=== PATIENT | female | born 1995 | race Caucasian/White ===

== ENCOUNTER 2023-11-06 15:04 | Outpatient (CLI) | payer SELFPAY | END 2023-11-06 15:05 | disposition home or self-care (01) | LOC: AMB 11-19 04:24 | PROVIDERS: Visit Provider Emergency Medicine Emergency Medical Services | DX: R10.9 Unspecified abdominal pain (principal); T78.1XXA Other adverse food reactions, not elsewhere classified, initial encounter | CPT/HCPCS: A0425; A0427 ==

== ENCOUNTER 2023-11-06 15:26 | Emergency (ER) | payer SELFPAY ==
[2023-11-06 15:30] VITALS: BP 169/122; PULSE 84; RESP 18; TEMP 36.6; O2SAT 100; BMI 44.6
--- NOTE | 2023-11-06 15:55 | ED.ABDPAIN ---
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 She does have a recurrent history of upper epigastric abdominal pain and her note to the nurse stated that this is been going on and off over the past 7 years since being bit by a tick. She tells me that this pain began after awakening from a nap just prior to arrival. She reports that she has not had any imaging done and states that no medicines have helped with this. I asked her if she ever had a GI cocktail and she said that she has and then it brought immediate relief. Related Data Home Medications ?Medication ?Instructions ?Recorded ?Confirmed Lamictal 11/06/23 Lexapro 11/06/23 Previous Rx's ?Medication ?Instructions ?Recorded pantoprazole 20 mg tablet,delayed 40 mg (2 x 20 mg) PO DAILY #30 tabs 11/06/23 release (Protonix) Review of Systems Status of ROS Reports: 10 or more systems reviewed and unremarkable except as noted in History and below Narrative Constitutional: No fevers, no weight gain or loss. Eyes: No discharge. No vision changes. HENT: No congestion, no sore throat, no ear pain. Cardiovascular: No chest pain, no palpitations. Respiratory: No shortness of breath, no wheezes, no cough. Gastrointestinal: No vomiting, no diarrhea. Upper epigastric abdominal pain. Genitourinary: No dysuria, no hematuria. Musculoskeletal: Normal range of motion. Skin: No rashes, no pruritis. Neurological: No dizziness, weakness, sensory change, speech change. Endo/Heme/Allergies: No bruising or bleeding. No polydipsia. Pysch: no suicidality, no anxiety, no insomnia. All other systems reviewed and are negative. PFSH PFSH Social History Do you use any of these nicotine containing products: Vaping Products How often do you have a drink containing alcohol: monthly or less AUDIT-C Alcohol total score: 1 Non-prescribed substance use: denies use Exam Narrative: Exam Narrative: Constitutional: Well-developed, well-nourished, no acute distress. HEENT: Normocephalic, atraumatic. Neck: Normal range of motion. Nontender. Supple. Heart: Regular. No murmurs. Normal rate. Intact distal pulses. Lungs: Clear to auscultation. No chest discomfort. No wheezes, rhonchi, or rales. Abdomen: Normal bowel sounds. Diffuse tenderness in the upper epigastric region. No rebound tenderness. Genitalia: Deferred. Back: No midline tenderness. Normal range of motion. Extremities: Normal range of motion. No injury. Skin: Intact. No rash. Warm. No erythema or pallor. Neurologic: No altered sensation. No weakness. Alert and oriented. Psychiatric: No suicidality. No anxiety or depression. No insomnia. Nursing notes and vitals signs are reviewed. Const: Vital Signs, click to edit/add: Vital Signs - 24 hr 11/06/23 15:30 Temperature 97.9 F Pulse Rate [Right Pulse Oximeter] 84 Respiratory Rate 18 Blood Pressure [Ri ght Upper Arm] 169/122 H Pulse Oximetry 100 Oxygen Delivery Me thod Room Air Course Vital Signs Vital signs: Initial Vital Signs Temperature 97.9 F 11/06/23 15:30 Temperature Source Temporal Artery Scan 11/06/23 15:30 Pulse Rate 84 11/06/23 15:30 Respiratory Rate 18 11/06/23 15:30 Blood Pressure 169/122 H 11/06/23 15:30 Blood Pressure Mean 137 H 11/06/23 15:30 Blood Pressure Position Sitting 11/06/23 15:30 Pulse Oximetry 100 11/06/23 15:30 Oxygen Delivery Method Room Air 11/06/23 15:30 Vital Signs Temperature 97.9 F 11/06/23 15:30 Pulse Rate 84 11/06/23 15:30 Respiratory Rate 18 11/06/23 15:30 Blood Pressure 169/122 H 11/06/23 15:30 Pulse Oximetry 100 11/06/23 15:30 Oxygen Delivery Method Room Air 11/06/23 15:30 Temperature 97.9 F 11/06/23 15:30 Pulse Rate 84 11/06/23 15:30 Respiratory Rate 18 11/06/23 15:30 Blood Pressure 169/122 H 11/06/23 15:30 Pulse Oximetry 100 11/06/23 15:30 Oxygen Delivery Method Room Air 11/06/23 15:30 Medications Administered Medications: Discontinued Medications Generic Name Dose Route Start Last Admin Trade Name Freq PRN Reason Stop Dose Admin Lidocaine/Aluminum/Magnesium/Simeth 30 ml 11/06/23 15:53 11/06/23 15:59 Gi Cocktail (Visc Lido/Antacid) 30 Ml PO 11/06/23 15:54 30 ml ONCE ONE Administration MDM - Abdominal Pain MDM Narrative Medical decision making narrative: This patient comes in with upper epigastric pain radiating up into her chest as described above. She has had this episodes like this in the past. She arrives with normal vital signs and has a normal exam except that she appears rather uncomfortable. She did receive a GI cocktail in this brought rather significant relief after fiber 10 minutes. She reports that she has had benefit from a GI cocktail in the past for symptoms like this. She is not taking any medicines to treat these symptoms. I did discuss further lab and imaging options which the patient declined in a process of shared decision making. She did receive an IV dose of Protonix 40 mg and Toradol 15 mg. I did explain that NSAID Z can contribute to this problem but it seemed today that the benefit of the pain medicine outweighed those adverse effects. She received a prescription for Protonix and is okay to be discharged home. Discharge Plan Discharge Clinical Impression: Gastritis, Esophagitis, reflux Patient Disposition: Home, Self-Care Condition: Improved Additional Instructions: take medication as prescribed. Follow up with MD for ongoing management or return if worsening. Prescriptions: New pantoprazole [Protonix] 20 mg tablet,delayed release (DR/EC) 40 mg PO DAILY Qty: 30 0RF No Action Lexapro Lamictal Stand Alone Forms: [email or web address] Info Instructions
[2023-11-06] MEDS: GI COCKTAIL (VISC LIDO/ANTACID) 30 ML PO (15:59)
[2023-11-06] MEDS: KETOROLAC 15 MG/ML inj IVP (17:00)
[2023-11-06] MEDS: PANTOPRAZOLE SODIUM 40 MG INJ IVP (17:01)
== END 2023-11-06 17:17 | disposition home or self-care (01) ==
LOC: ED 17:15
PROVIDERS: Emergency Provider Emergency Medicine Emergency Medical Services
DX: K21.00 Gastro-esophageal reflux disease with esophagitis, without bleeding (principal)
CPT/HCPCS: 96374; 96375; 99283; 99284; A9270; J1885; J2470